=== PATIENT | female | born 1935 | race Caucasian/White ===

== ENCOUNTER 2016-09-26 11:53 | Day surgery (SDC) | payer MEDICARE, BC ==
[~2016-09-26] VITALS: Ht 160 cm; Wt 72.9 kg
[~2016-09-26 11:53] MED LIST: ACET-2723 PO; ASPI-557 PO; BENA20TA3 PO; LACT1CAP73 PO; LIDOCAINE 1% (10mg/ml) 2ml SDV INJ ONE; MULT-933 PO; NORMAL SALINE 1,000 ML IV ONE
--- OUTSIDE RECORDS SUMMARY | 2016-09-26 11:57 | XMS REPORT | Continuity of Care Document ---
Author Author [facility] Organization [facility] Address Unknown Phone Unavailable Support Name Relationship Address Phone COMFORT KING MD Caregiver [address] [place] [address] Unavailable DONNIE FRANCO MD Caregiver [address] [place] [address] [place] [address] Unavailable JAVAD AGUDELO Next Of Kin [address] [place], [place] [id number] Insurance Providers Guarantor Liliam Agudelo Address [address] [place] [address] Email [email or web address] [facility] Policy Number [id number] Subscriber's Name Liliam Agudelo Relationship 18 Self Group Number [id number] Effective Date 16 Payer Medicare Policy Number [id number] Subscriber's Name Liliam Agudelo Sabas Relationship 18 Self Effective Date 16 Advance Directives Directive Response Recorded Date/Time Ordered Resuscitation Status Full Code, unverified 06/27/16 12:19pm Resuscitation Documents on File N UNSURE 06/28/16 7:33am DPOA for Healthcare Only Yes 06/28/16 7:33am Living Will Yes 06/28/16 7:33am Problems Active Problems Medical Problem Onset Date Status RENAL CALCULI Unknown Acute Medications Current Home Medications Medication Dose Units Route Directions Days Qty Instructions Start Date Acetaminophen (Tylenol Extra Strength) 500 Mg Tablet 2 Tab Oral Daily 03/22/16 Aspirin (Aspir 81) 81 Mg Tablet. 1 Tab Oral Daily 10/26/15 Cyanocobalamin (Vitamin B-12) (Vitamin B-12) 1,000 Mcg Tablet 250 Mcg Oral Daily 12/20/15 Everolimus (Afinitor) 10 Mg Tablet 2 Tab Oral Daily 06/27/16 L.acidoph & Paracasei,B.lactis (Probiotic) 1 Each Capsule 1 Cap Oral Daily 10/25/15 Multivitamin (Multi-Day Vitamins) 1 Each Tablet 1 Tab Oral Daily 03/21/16 Past Home Medications Medication Directions Ordered Status Omeprazole 20 Mg Capsule.dr, 20 Mg Oral Before Breakfast 10/25/15 Discontinued Omeprazole (Prilosec) 20 Mg Capsule.dr, 20 Mg Oral Daily 10/20/12 Discontinued Social History Social History Problem Response Recorded Date/Time Onset Date Status Reason for Hospitalization REPLACE STENT 06/28/2016 9:34am Not Applicable Not Applicable Chewing Tobacco Status No 06/28/2016 7:42am Not Applicable Not Applicable Hx Substance Use No 06/28/2016 7:42am Not Applicable Not Applicable Hx Alcohol Use No 06/28/2016 7:42am Not Applicable Not Applicable Has the pt used tobacco in the last 12 months No 06/28/2016 7:42am Not Applicable Not Applicable Query Response Start Date Stop Date Smoking Status Former smoker Hospital Discharge Instructions Instructions: Care Instructions: I was in the hospital because (patient own words): STENT EXCHANCE Discharge Diet: regular Discharge Activity: increase water x 1 week Follow Up Appointments: my office will arrange Pending Lab / Results: No Pending Lab Expected Signs/Symptoms: none Notify Physician If: NA During Business Hours:: Please call the physician's office at [phone] After Business Hours:: Please call [phone] and have the color printer operator page the physician. Pain Management/Treatment: norco Wound/Incision Care: na Condition at time of discharge: Good Plan of Care Discharge Date 06/28/16 10:27am Instructions/Education Provided [facility] Surgical Services [facility] Urology Cysto & Stent Placement, W or WO Ureteroscopy and Stone Tx DI for Ureteral Stent Placement Prescriptions See Medication Section Functional Status Query Response Date Recorded Ability to complete ADL's impeded by No change June 28, 2016 7:33am Allergies, Adverse Reactions, Alerts Allergen Type Severity Reaction Status Last Updated No Known Drug Allergies Allergy Unknown Active 06/27/16 Immunizations Query Response on File Recorded Date/Time Hx Influenza Vaccination Y 201506/28/16 7:42am Hx Pneumococcal Vaccination Y 201506/28/16 7:42am Hx Influenza Vaccination Y 201506/28/16 7:42am Vital Signs Acute Vital Signs Vital Response Date/Time Temperature (Fahrenheit) 98.0 deg F (96.8 - 99.1) 06/28/2016 10:21am Temperature (Calculated Celsius) 36.36736 degrees C (36.0 - 37.3) 06/28/2016 10:21am Temperature Source Oral 06/28/2016 10:21am Pulse Rate (adult) 78 bpm (60 - 100) 06/28/2016 10:21am Respiratory Rate 16 breaths/min (10 - 20) 06/28/2016 10:21am O2 Sat by Pulse Oximetry 94 % (90 - 100) 06/28/2016 10:21am Oxygen Delivery Method Room Air 06/28/2016 10:21am Oxygen Flow Rate 2.00 L/min 06/28/2016 9:31am Blood Pressure 140/64 mm Hg 06/28/2016 10:21am Blood Pressure Source Automatic Cuff 06/28/2016 10:21am Height (Feet) 5 feet 06/28/2016 7:20am Height (Inches) 2.50 inches 06/28/2016 7:20am Weight (Kilograms) 76.800 kg 06/28/2016 7:20am Body Mass Index (BMI) 30.5 06/28/2016 7:20am Results Laboratory Results Test Name Result Units Flags Reference Collection Date/Time Result Date/ Time Comments White Blood Count 4.5 T/MM3 4.5-11.0 06/28/2016 7:25am 06/28/2016 7: 37am Red Blood Count 4.31 M/MM3 4.00-5.20 06/28/2016 7:25am 06/28/2016 7: 37am Hemoglobin 11.9 GM/DL L 12-16 06/28/2016 7:2506/28/2016 7:37am Hematocrit 37.4 % 36-46 06/28/2016 7:25am 06/28/2016 7:37am Mean Corpuscular Volume 86.8 UM3 80-100 06/28/2016 7:25am 06/28/2016 7: 37am Mean Corpuscular Hemoglobin 27.6 UUG 26-34 06/28/2016 7:25am 2015 7:37am Mean Corpuscular Hemoglobin Concent 31.8 GM/DL 31-37 06/28/2016 7:25am 06/28/2016 7:37am RDW Standard Deviation 42.7 FL 36.9-50.2 06/28/2016 7:06/28/2016 7 :37am Platelet Count 269 T/MM3 130-400 06/28/2016 7:06/28/2016 7:37am Mean Platelet Volume 10.8 UM3 9.4-12.4 06/28/2016 7:06/28/2016 7: 37am Neutrophils (%) (Auto) 54.6 % 33-66 06/28/2016 7:06/28/2016 7: 37am Lymphocytes (%) (Auto) 34.6 % 23-45 06/28/2016 7:06/28/2016 7: 37am Monocytes (%) (Auto) 6.3 % 0-9.0 06/28/2016 7:06/28/2016 7:37am Eosinophils (%) (Auto) 3.8 % 0-4 06/28/2016 7:06/28/2016 7:37am Basophils (%) (Auto) 0.7 % 0-2 06/28/2016 7:06/28/2016 7:37am Immature Granulocyte % (Auto) 0.0 % 0.0-0.5 06/28/2016 7:2015 7:37am Absolute Neutrophils (auto) 2.5 T/MM3 1.8-7.7 06/28/2016 7:2015 7:37am Absolute Lymphocytes (auto) 1.6 T/MM3 1-4.8 06/28/2016 7:2015 7:37am Absolute Monocytes (auto) 0.3 T/MM3 0-0.8 06/28/2016 7:06/28/2016 7:37am Absolute Eosinophils (auto) 0.2 T/MM3 0-0.5 06/28/2016 7:2015 7:37am Absolute Basophils (auto) 0.0 T/MM3 0-0.2 06/28/2016 7:06/28/2016 7:37am Absolute Immature Granulocyte (auto 0.00 T/MM3 0.00-0.03 06/28/2016 7: 06/28/2016 7:37am Icterus Index < 2 0-7 06/28/2016 7:06/28/2016 7:45am Chemistry Specimen Hemolysis < 15 0-25 06/28/2016 7:2506/28/2016 7 :45am 0-25: Specimen Exhibited No Hemolysis. Turbidity < 20 0-20 06/28/2016 7:06/28/2016 7:45am Sodium Level 140 MEQ/L 134-144 06/28/2016 7:06/28/2016 7:45am Potassium Level 3.3 MEQ/L L 3.6-5 06/28/2016 7:06/28/2016 7:45am Chloride Level 104 MEQ/L 98-107 06/28/2016 7:06/28/2016 7:45am Carbon Dioxide Level 25 MEQ/L 22-30 06/28/2016 7:06/28/2016 7: 45am Anion Gap 11 MEQ/L 5-15 06/28/2016 7:06/28/2016 7:45am Blood Urea Nitrogen 20.0 MG/DL H 7-17 06/28/2016 7:06/28/2016 7: 45am Creatinine 1.6 MG/DL H 0.7-1.2 06/28/2016 7:06/28/2016 7:45am BUN/Creatinine Ratio 13 RATIO 6-06/28/2016 7:06/28/2016 7:45am Glomerular Filtration Rate Calc 31 06/28/2016 7:06/28/2016 7: 45am Glucose Level 151 MG/DL H 65-110 06/28/2016 7:06/28/2016 7:45am Calculated Osmolality 275 MOSM/KG 261-280 06/28/2016 7:06/28/2016 7:45am Calcium Level 9.0 MG/DL 8.4-10.2 06/28/2016 7:06/28/2016 7:45am Total Bilirubin 0.90 MG/DL 0.20-1.30 06/28/2016 7:06/28/2016 7: 45am Alkaline Phosphatase 106 U/L 38-126 06/28/2016 7:06/28/2016 7: 45am Total Protein 7.3 G/DL 6.3-8.2 06/28/2016 7:06/28/2016 7:45am Albumin 3.7 G/DL 3.5-5.0 06/28/2016 7:25am 06/28/2016 7:45am Globulin 3.6 G/DL 2.4-3.6 06/28/2016 7:25am 06/28/2016 7:45am Albumin/Globulin Ratio 1.0 RATIO L 1.1-2.2 06/28/2016 7:25am 06/28/2016 7:45am Aspartate Amino Transf (AST/SGOT) 31 U/L 14-36 06/28/2016 7:25am 2015 7:45am Alanine Aminotransferase (ALT/SGPT) 23 U/L 9-52 06/28/2016 7:25am 06/28 7:45am Name: LILIAM AGUDELO Unit #: [id number] : 1935 Sex: F Admit Date: Loc / Svc: SCU Discharge Date: DIAGNOSTIC IMAGING REPORT Report #: [id number] [facility] TOO Luo Indication: ITS.REASON: RT HYDRONEPHROSIS/ STENT EXCHANGE PROCEDURE: RF RETROGRADE PYELOGRAM RIGHT: Encounter: Initial Comparison: Fluoroscopy dated December 22, 2015 Findings: Seven fluoroscopic spot images are submitted for interpretation. Images show injection of contrast into the right ureter via a cystoscope with opacification of the right ureter. A guidewire is then advanced into the right renal pelvis with contrast injected into the right renal collecting systems mild calyceal blunting. A double-J stent is then placed. Impression: Fluoroscopy as above. Fluoroscopy time is 70.1 seconds. Fluoroscopy dose is 2340 mRad. . Procedures Procedure Status Date Provider(s) ROUTINE VENIPUNCTURE Completed 02/07/16 COMPREHEN METABOLIC PANEL Completed 02/07/16 COMPLETE CBC W/AUTO DIFF WBC Completed 02/07/16 Cystoscopic insertion of ureteral stent Completed 06/28/16 COMFORT KING MD Encounters Encounter Location Arrival/Admit Date Discharge/Depart Date Attending Provider Departed Surgical Day Care [facility] 06/28/16 6:51am 06/28/16 10 :27am COMFORT KING MD Registered Recurring [facility] 06/27/16 10:20am ASH GUERRA MD Discharged Recurring [facility] 02/07/16 9:25am 04/20/16 11:59pm ASH GUERRA MD
--- OUTSIDE RECORDS SUMMARY | 2016-09-26 11:57 | XMS REPORT | Continuity of Care Document ---
Author Author [facility] Address Unknown Phone Unavailable Support Name Relationship Address Phone COMFORT KING MD Caregiver [address] [place] [address] Unavailable DONNIE FRANCO MD Caregiver [address] [place] [address] [place] [address] Unavailable JAVAD AGUDELO Next Of Kin [address] [place] [address] Insurance Providers Guarantor Liliam Agudelo Address [address] [place] [address] Email [email or web address] Payer Medicare Policy Number [id number] Subscriber's Name Liliam Agudelo Relationship 18 Self Effective Date 01 [facility] Policy Number [id number] Subscriber's Name Liliam Agudelo Sabas Relationship 18 Self Group Number [id number] Advance Directives Directive Response Recorded Date/Time Ordered [...] Hours:: Please call the physician's office at [phone] After Business Hours:: Please call [phone] and have the rasper machine operator page the physician. Pain Management/Treatment: norco Wound/Incision Care: na Condition at time of discharge: Good Plan of Care Discharge Date 06/28/16 10:27am Instructions/Education Provided [facility] [place] [facility] Urology Cysto & Stent Placement, W or [...] - 99.1) 06/28/2016 10:21am Temperature (Calculated Celsius) 36.47367 degrees C (36.0 - 37.3) 06/28/2016 10:21am [...] 37am Hemoglobin 11.9 GM/DL L 12-16 06/28/2016 7:25am 06/28/2016 7:37am Hematocrit 37.4 % 36-46 06/28/2016 7:25am 06/28/2016 7:37am Mean Corpuscular Volume 86.8 UM3 80-100 06/28/2016 7:25am 06/28/2016 7: 37am Mean Corpuscular Hemoglobin 27.6 UUG 26-34 06/28/2016 7:25am 2015 7:37am Mean Corpuscular Hemoglobin Concent 31.8 GM/DL 31-37 06/28/2016 7:25am 06/28/2016 7:37am RDW Standard Deviation 42.7 FL 36.9-50.2 06/28/2016 7:2506/28/2016 7 :37am Platelet Count 269 T/MM3 130-400 [...] Chemistry Specimen Hemolysis < 15 0-25 06/28/2016 7:06/28/2016 7 :45am 0-25: Specimen Exhibited No Hemolysis. [...] 06/28/2016 7:06/28/2016 7:45am BUN/Creatinine Ratio 13 RATIO 6-26 06/28/2016 7:06/28/2016 7:45am Glomerular Filtration Rate Calc 31 [...] 9-52 06/28/2016 7:25am 06/28 7:45am Name: LILIAM AGUDEOL Unit #: [id number] : 1935 Sex: F Admit Date: Loc / Svc: SCU Discharge Date: DIAGNOSTIC IMAGING REPORT Report #: [id number] [facility] TOO Luo Indication: ITS.REASON: RT HYDRONEPHROSIS/ [...] Date Attending Provider Departed Surgical Day Care [facility] 06/28/16 6:51am 06/28/16 10 :27am COMFORT KING MD Discharged Recurring [facility] 06/27/16 10:20am 06/30/16 11: 50pm ASH GUERRA MD Discharged Recurring [facility] 02/07/16 9:25am 04/20/16 11:59pm ASH GUERRA MD
[2016-09-26 12:07] VITALS: Ht 160 cm; Wt 72.9 kg
[2016-09-26 12:08] VITALS: BP 144/77; PULSE 96; RESP 15; TEMP 97.6; O2SAT 90
[2016-09-26] MEDS ORDERED: EVER10TA (12:16)
[2016-09-26 12:44] LABS: BASOPHILS % (AUTO) 0.4 % (0-2); EOSINOPHILS # (AUTO) 0.1 T/MM3 (0-0.5); EOSINOPHILS % (AUTO) 2.4 % (0-4); HCT - HEMATOCRIT 36.4 % (36-46); HGB - HEMOGLOBIN 11.6 GM/DL (12-16); IMMATURE GRANULOCYTE # (AUTO) 0.01 T/MM3 (0.00-0.03); IMMATURE GRANULOCYTE % (AUTO) 0.2 % (0.0-0.5); LYMPHOCYTES # (AUTO) 1.1 T/MM3 (1-4.8); LYMPHOCYTES % (AUTO) 23.2 % (23-45); MEAN CORPUSCULAR HGB 26.5 UUG (26-34); MEAN CORPUSCULAR HGB CONC(MCHC 31.9 GM/DL (31-37); MEAN CORPUSCULAR VOLUME 83.1 UM3 (80-100); MEAN PLATELET VOLUME 10.7 UM3 (9.4-12.4); MONOCYTES # (AUTO) 0.3 T/MM3 (0-0.8); NEUTROPHILS #(AUTO)-ABSOLUTE 3.2 T/MM3 (1.8-7.7); NEUTROPHILS % (AUTO) 67.8 % (33-66); RED BLOOD COUNT 4.38 M/MM3 (4.00-5.20); WBC - WHITE BLOOD COUNT 4.7 T/MM3 (4.5-11.0)
[2016-09-26 12:58] LABS: ALBUMIN 3.6 G/DL (3.5-5.0); ALKALINE PHOSPHATASE 88 U/L (38-126); ALT (SGPT) 28 U/L (9-52); ANION GAP 9 MEQ/L (5-15); AST (SGOT) 35 U/L (14-36); BUN/CREATININE RATIO 13 RATIO (6-26); CALCIUM 9.3 MG/DL (8.4-10.2); CHLORIDE 104 MEQ/L (98-107); CO2 - CARBON DIOXIDE 30 MEQ/L (22-30); CREATININE 1.4 MG/DL (0.7-1.2); GLOMERULAR FILTRATION RATE 36; GLUCOSE 143 MG/DL (65-110); POTASSIUM 3.3 MEQ/L (3.6-5); SODIUM 143 MEQ/L (134-144); TOTAL PROTEIN 7.2 G/DL (6.3-8.2)
--- NOTE | 2016-09-26 13:33 | ANESPREOP ---
Anesthesia Record Date and Time DATE: 09/26/16 TIME: 13:32 Pre-Op Diagnosis Carcinoid cancer Proposed Surgical Procedure CYSTO/RT STENT EXCHANGE NPO since: MN Allergies: Coded Allergies: No Known Drug Allergies (Verified Allergy, Unknown, 09/26/16) Ht/Wt/BMI Height: 5 ' 3.00 " Weight: 72.900 kg BMI: 28.5 kg/m2 Vital Signs Date Time Temp Pulse Resp B/P Pulse Ox O2 Delivery O2 Flow Rate FiO2 09/26/16 12:08 97.6 96 15 144/77 90 Room Air Medications Acetaminophen (Tylenol Extra Strength) 500 Mg Tablet, 2 TAB PO DAILY, (Reported) Last Taken: on 09/25/16 0700 Aspirin (Aspir 81) 81 Mg Tablet.dr, 1 TAB PO DAILY, (Reported) Last Taken: on 09/18/16 Benazepril HCl (Benazepril HCl) 20 Mg Tablet, 1 TAB PO DAILY, (Reported) Last Taken: on 09/25/16 07 Everolimus (Afinitor) 10 Mg Tablet, MG DAILY, ( Reported) Last Taken: on 09/25/16 07 Lactobacillus Combination No.4 (Probiotic) 1 Each Capsule, 1 CAP PO DAILY, (Reported) Last Taken: on 09/25/16 07 Multivitamin (Multi-Day Vitamins) 1 Each Tablet , 1 TAB PO DAILY, (Reported) Last Taken: on 09/25/16 0700 Currently on Beta Pablo: No Medical/Surgical History Anesthesia PMH: Reports: *Dyspnea (noted recently since started taking chemotherapeutic drug ), *Hypertension, Arthritis, Cancer (COLON, LUNG PER, KIDNEY H&P), Cardiac Arrythmia (sinus arrhythmia per pt.), Renal Disease (TUMOR BLOCKING R KIDNEY), Denies: *Angina, *Diabetes, *CT, Anesthesia Reactions (NO AIRWAY ISSUES ), Asthma, Blood Transfusion Reac, CHF, COPD, CVA/Stroke/TIA, Clotting Problems, Deep Vein Thrombosis, Glaucoma, Hepatitis, Hiatal Hernia, Malignant Hyperthermia, Pneumonia, Reflux, Seizures, Sleep Apnea, Thyroid Disease, Tuberculosis Smoking Status: Former smoker # of Years: 15 Use Chewing Tobacco?: No Substance Use Type: does not use Alcohol Intake: none HX of Last Menstrual Period: 1970 Past Surgical History Orthopedic Surgeries: Yes - BILATERAL HIPS Abdominal Surgeries: Yes - CHOLECYSTECTOMY, R.HEMICOLECTOMY PER H&P Genitourinary Surgeries: Yes - CYSTO. WITH RIGHT STENT PLACEMENT PER H&P Cardiac Surgeries: No Endocrine Surgeries: No Reproductive Surgeries: Yes - HYST. PER H&P Neurological Surgeries: No Ear Surgeries: No Nose Surgeries: No Throat Surgeries: No Other Surgeries: Yes - R LOWER LOBE OF LUNG Anesthesia Adverse Reactions: FOUND none Family Hx of Anesthesia Advers: none Hx of Motion Sickness: No Pertinent Findings Laboratory Tests 09/26/16 12:27 EKG Rhythm: Sinus Rhythm Physical Exam Respiratory: Lungs clear Cardiovascular: FOUND Regular rate, rhythm, FOUND No murmur Airway Assessment Mallampati Score: II TMD: 3 Fingerbreadths ASA: 3 Plan Anesthesia Plan: TIVA Discussion Discussed risks/options/alternatives of anesthesia and questions answered. Patient consents. Nursing pain assessment noted. Attestation Statement Prior to the delivery of any anesthetic medication, I examined the patient, developed the plan, obtained the patient's consent and discussed the risk and benefits of the procedure with the patient/guardian. JIMMIE SALMON CRNA Sep 26, 2016 13:33
[2016-09-26] MEDS ORDERED: PROPOFOL 500mg 50 ML IV ONE (13:36)
[2016-09-26] MEDS ORDERED: FENTANYL 100mcg/2ml INJECTION ONE (13:39)
[2016-09-26] MEDS ORDERED: HYDR-4246 PO (13:40)
[2016-09-26] MEDS ORDERED: SULF1TAB42 PO (13:40)
[2016-09-26] MEDS ORDERED: PHENAZOPYRIDINE 95 MG TABLET PO ONE (13:45)
[2016-09-26] MEDS ORDERED: ONDANSETRON 4mg/2ml INJECTION IV PRN (13:45)
[2016-09-26] MEDS ORDERED: HYDROCODONE/APAP 5 mg/325 mg TABLET PO PRN (13:45)
[2016-09-26 13:56] VITALS: BP 141/78; PULSE 82; RESP 16; TEMP 97.8; O2SAT 94
--- NOTE | 2016-09-26 14:06 | ANESPO ---
Post-Op Note Date 09/26/16 Time: 14:05 Status Pt Participated in Evaluation: Pt participated in person Vital Signs Date Time Temp Pulse Resp B/P Pulse Ox O2 Delivery O2 Flow Rate FiO2 09/26/16 13:56 97.8 82 16 141/78 94 Room Air Respiratory Function: Airway patent, Regular respirations Cardiovascular Function: Regular pulse Telemetry Pattern: SR Mental Status: Alert/oriented Pain Level Intensity: 0 Hydration: Taking po fluids Complications during Recovery None apparent Follow-Up Instructions Instructions Per Surgeon JIMMIE SALMON CRNA Sep 26, 2016 14:06
[2016-09-26 14:10] VITALS: BP 153/78; PULSE 88; RESP 20; O2SAT 93
[2016-09-26 14:25] VITALS: BP 153/83; PULSE 82; RESP 20; O2SAT 92
[2016-09-26] MEDS ORDERED: CEFAZOLIN 1 G in NORMAL SALINE 100 ML IV ONE (14:30)
[2016-09-26 14:40] VITALS: BP 169/89; PULSE 82; RESP 14; O2SAT 92
--- NOTE | 2016-09-26 14:46 | DI ---
Indication: ITS.REASON: RT STENT EXCHANGE PROCEDURE: RF KUB: Encounter: Initial Comparison: Fluoroscopy dated March 22, 2016 Findings: Six fluoroscopic spot images are submitted for interpretation. Images show exchange of a right-sided double-J stent which projects in appropriate position. Impression: Fluoroscopy as above. Fluoroscopy time is 11.8 seconds. Fluoroscopy dose is 323.8 mRad. .
--- NOTE | 2016-09-27 09:20 | OPNOTEF ---
DATE OF PROCEDURE 09/26/2016 PREOPERATIVE DIAGNOSES 1. Right hydronephrosis. 2. History of colon cancer. POSTOPERATIVE DIAGNOSES 1. Right hydronephrosis. 2. History of colon cancer. PROCEDURE PERFORMED 1. Cystoscopy. 2. Right ureter stent exchange. SURGEON Alexx Baird MD INDICATION FOR THE PROCEDURE The patient is a 81-year-old female. 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 She is on chemotherapy. She is managed with an indwelling stent. She has done well with this. It is now three months and due to be changed. DESCRIPTION OF PROCEDURE The patient was taken back to the OR, placed under anesthesia, moved to the lithotomy position. Her genitalia was prepped and draped. Time-out was performed. A 22 Filipino scope was passed per the urethra into the bladder. The distal end of the stent was visualized. It had some encrustation. It came out easily however. I passed a Sensor wire through it. Under fluoroscopic images, one could see the wire go up and curl nicely in the renal pelvis. I removed the stent. I back loaded the wire through the scope and then, with the scope back in the bladder, I passed a new 6 x 24 cm double-J stent. This seemed to be a good size. The proximal end curled nicely in the renal pelvis. The distal end had a good curl in the bladder. The bladder was drained. That was the end of the case. DISPOSITION I'm going to continue changing the stent every three months. She seems to be doing well with it. I will schedule that and see her back then. MTDD
== END 2016-09-26 14:54 | disposition home or self-care (01) ==
LOC: SCU 11:53
PROVIDERS: ATTEND Surgery
DX: Z46.6 Encounter for fitting and adjustment of urinary device (principal); N13.1 Hydronephrosis with ureteral stricture, not elsewhere classified; Z85.030 Personal history of malignant carcinoid tumor of large intestine; Z90.49 Acquired absence of other specified parts of digestive tract; Z87.442 Personal history of urinary calculi; I10 Essential (primary) hypertension; Z79.82 Long term (current) use of aspirin; Z79.899 Other long term (current) drug therapy; Z87.891 Personal history of nicotine dependence; Z85.118 Personal history of other malignant neoplasm of bronchus and lung
CPT/HCPCS: 36415; 52332; 74000; 76000; 80053; 85025; C2617; J0690; J3010; J7030; J7050

== ENCOUNTER → 2016-10-16 | Outpatient (CLI) | payer MEDICARE, BC ==
[~2016-10-16] MED LIST changes: +EVER10TA; +HYDR-4246 PO; -LIDOCAINE 1% (10mg/ml) 2ml SDV INJ ONE; -NORMAL SALINE 1,000 ML IV ONE; +SULF1TAB42 PO
--- NOTE | 2016-10-16 09:49 | DI ---
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 Findings: Hepatic parenchyma is heterogeneous with multiple hypoechoic metastatic lesions. A previously measured lesion in the posterior right lobe of liver is slightly smaller now measuring 9 x 4.4 x 7.7 cm compared to 9.3 x 5.4 x 8.4 cm. An additional lesion in the right lobe of the liver is smaller at 3.8 x 2.8 x 4.6 cm compared to 5.3 x 3.9 x 3.6 cm. Additional lesion in the left lobe of the liver now measures 5.9 x 4.2 x 2.7 cm compared to 5.6 x 4.8 x 2.8 cm. The gallbladder is surgically absent. Both the intra and extrahepatic biliary system are of normal caliber with the common duct measuring 5 mm in dimension. Visualized portions of the head and body of the pancreas are unremarkable. Right hydronephrosis with a stent in place. Left kidney measures 12.3 cm in length. The right measures 8.2 cm in length. The spleen is unremarkable. The visualized portions of the aorta and IVC are unremarkable. No free fluid. Impression: Improved hepatic metastases. .
--- NOTE | 2016-10-16 10:52 | DI ---
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 Automated Exposure Control and Iterative Reconstruction dose reducing techniques were utilized. Findings: Chest: Postoperative changes in the right hemithorax with volume loss and areas of pleural thickening and scarring. There is slight increase in prominence of a pleural-based soft tissue thickening in the right upper chest best seen on axial image #18 which measures 2.9 cm in thickness although this has appeared somewhat similar dating back to November 2015. No discrete new pulmonary nodules or masses. No pneumonia, pleural effusion or pneumothorax. There is no axillary or mediastinal adenopathy by CT criteria. Small right paratracheal nodes are unchanged. Heart is mildly enlarged without pericardial effusion. Three vessel coronary artery disease. Abdomen: Hepatic metastases are better seen on today's abdominal ultrasound. These are visualized as subtle lower attenuation lesions on this noncontrast study. By CT the lesions appear unchanged from the comparison without obvious new lesion. There is a slightly nodular contour to the liver. Prior cholecystectomy. The spleen, pancreas and adrenal glands are within normal limits. Worsening right hydronephrosis with a double-J stent in place. Left kidney is unchanged. Colonic anastomosis near the hepatic flexure. No abdominal adenopathy. Bone windows show degenerative change and scoliosis in the spine. Impression: 1. Grossly stable hepatic metastatic disease. 2. No new metastases seen. 3. Worsening right hydronephrosis, recommend correlation with stent function. .
== END ==
LOC: IMA 07:29
PROVIDERS: ATTEND Internal Medicine Medical Oncology
DX: C7A.021 Malignant carcinoid tumor of the cecum (principal); C78.7 Secondary malignant neoplasm of liver and intrahepatic bile duct; N13.30 Unspecified hydronephrosis; Z97.8 Presence of other specified devices; Z85.118 Personal history of other malignant neoplasm of bronchus and lung